=== PATIENT | male | born 1980 | race Hispanic/Latino ===

== ENCOUNTER 2019-03-03 19:50 | Emergency (ER) | payer SELFPAY ==
[2019-03-03 20:07] VITALS: BP 122/65; TEMP 98.2; O2SAT 97
[2019-03-03] MEDS ORDERED: CLINDAMYCIN PHOSPHATE 150 MG/ML VIAL IM ONE (20:17)
[2019-03-03] MEDS ORDERED: KETOROLAC TROMETHAMINE INJ 30 MG/ML VIAL IM ONE (20:17)
--- NOTE | 2019-03-03 20:21 | ED.PDOC ---
History of Present Illness - General Chief Complaint: Skin/Abrasion/Tear Stated Complaint: "knots in back of head" Time Seen by Provider: 03/03/19 20:17 - History of Present Illness Initial Comments: c/o swelling and pain on the back of the neck since 2 weeks gradually getting worse , no fever or chills Severity: moderate Improving Factors: nothing Worsening Factors: nothing Associated Symptoms: rash Allergies/Adverse Reactions: Allergies NO KNOWN ALLERGY Allergy (Verified 03/03/19 20:07) Home Medications: Ambulatory Orders Naproxen [Naprosyn] 500 mg PO BID #10 tab 03/03/19 Sulfamethoxazole-Trimethoprim [Bactrim Ds 800-160 mg] 1 tab PO BIDAC #20 tab 03/03/19 Review of Systems - Review of Systems Constitutional: States: no symptoms reported EENTM: States: no symptoms reported Respiratory: States: no symptoms reported Cardiology: States: no symptoms reported Gastrointestinal/Abdominal: States: no symptoms reported Genitourinary: States: no symptoms reported Musculoskeletal: States: no symptoms reported Skin: States: see HPI Neurological: States: no symptoms reported Endocrine: States: no symptoms reported Hematologic/Lymphatic: States: no symptoms reported Past Medical History (General) - Patient Medical History Hx Seizures: No Hx Stroke: No Hx Dementia: No Hx Asthma: No Hx of COPD: No Hx Cardiac Disorders: No Hx Congestive Heart Failure: No Hx Pacemaker: No Hx Hypertension: No Hx Thyroid Disease: No Hx Diabetes: No Hx Gastroesophageal Reflux: No Hx Renal Disease: No Hx Cancer: No Hx of HIV: No Hx Hepatitis C: No Hx MRSA: No Surgical History: appendectomy - Vaccination History Hx Tetanus, Diphtheria Vaccination: No Hx Influenza Vaccination: Yes - Social History Hx Alcohol Use: No Hx Substance Use: No Hx Physical Abuse: No Hx Emotional Abuse: No - Female History Patient : No Family Medical History - Family History Father Family History: Unknown Living Status: Unknown Physical Exam - Physical Exam General Appearance: Alert, Comfortable Eye Exam: bilateral normal Ears, Nose, Throat: hearing grossly normal Neck: supple, other - tenderness over the back of the neck with small swelling and rash Respiratory: no respiratory distress, no accessory muscle use Cardiovascular/Chest: regular rate, rhythm Extremity: normal range of motion, non-tender, normal inspection Neurologic: no motor/sensory deficits, alert, normal mood/affect, oriented x 3 Lymphatic: no adenopathy Departure - Departure Clinical Impression: Cellulitis and abscess of head Time of Disposition: 20:22 Disposition: Discharge to Home or Self Care Condition: Good Departure Forms: ED Discharge - Pt. Copy, Patient Portal Self Enrollment Diet: resume usual diet Activity: increase activity as tolerated, walking as tolerated Prescriptions: Naproxen [Naprosyn] 500 mg PO BID #10 tab Sulfamethoxazole-Trimethoprim [Bactrim Ds 800-160 mg] 1 tab PO BIDAC #20 tab Home Medications: Ambulatory Orders Naproxen [Naprosyn] 500 mg PO BID #10 tab 03/03/19 Sulfamethoxazole-Trimethoprim [Bactrim Ds 800-160 mg] 1 tab PO BIDAC #20 tab 03/03/19
== END 2019-03-03 20:37 | disposition home or self-care (01) ==
LOC: ER 19:50
DX: L03.811 Cellulitis of head [any part, except face] (principal)
CPT/HCPCS: J1885; J3490

== ENCOUNTER 2019-03-28 12:45 | Emergency (ER) | payer SELFPAY ==
[2019-03-28 13:14] VITALS: BP 120/72; TEMP 98.3; O2SAT 95
--- NOTE | 2019-03-28 13:29 | RAD ---
EXAM DESCRIPTION: Abdomen 1 View CLINICAL HISTORY: 38 years Male, thinsk he may have swallowed a screw COMPARISON: None. TECHNIQUE: 1 view of the abdomen was performed. FINDINGS: Multiple air distended bowel loops are identified with no evidence of bowel obstruction. Moderate amount of fecal material is identified. No abnormal calcifications are noted. 5 mm hypodense focus is noted overlying the right iliac bone in the region of the ascending colon. This could represent a foreign body. IMPRESSION: 5 mm hypodense focus is noted overlying the right iliac bone in the region of the ascending colon. This could represent a foreign body. Electronically signed by: Kadi Jha MD 03/28/2019 1:28 PM [employer] [facility]
--- NOTE | 2019-03-28 13:30 | RAD ---
EXAM DESCRIPTION: Chest,1 View CLINICAL HISTORY: 38 years Male, thinsk he may have swallowed a screw COMPARISON: None available. TECHNIQUE: AP radiograph of the chest was obtained. FINDINGS: Trachea is midline.The cardiomediastinal silhouette is normal in size. The pulmonary vasculature is within normal limits.The lungs are clear with no acute consolidation.No evidence of pleural effusions. IMPRESSION: No acute cardiopulmonary process. Electronically signed by: Kadi Jha MD 03/28/2019 1:28 PM [facility]
--- NOTE | 2019-03-28 13:37 | ED.PDOC ---
History of Present Illness - General Chief Complaint: GI Problem Stated Complaint: possibly swallowed a screw Time Seen by Provider: 03/28/19 12:47 Source: patient Exam Limitations: no limitations - History of Present Illness Initial Comments: the patient is a 38-year-old male presented to emergency room due to concern for having swallowed a small screw. He had what he thought was 4 of them in his mouth when he spit them out there was only 3. No pain with any swallowing. No abdominal pain. No shortness of breath. he is concerned that he may have swallowed 1. Timing/Duration: momentarily Severity: mild Improving Factors: nothing Worsening Factors: nothing Associated Symptoms: denies symptoms Allergies/Adverse Reactions: Allergies NO KNOWN ALLERGY Allergy (Verified 03/03/19 20:07) Home Medications: Ambulatory Orders Acetaminophen [Acetaminophen Extra Stren] 1,000 mg PO DAILY 03/28/19 Review of Systems - Review of Systems Constitutional: States: no symptoms reported EENTM: States: no symptoms reported Respiratory: States: no symptoms reported Cardiology: States: no symptoms reported Gastrointestinal/Abdominal: States: no symptoms reported Genitourinary: States: no symptoms reported Musculoskeletal: States: no symptoms reported Skin: States: no symptoms reported Neurological: States: no symptoms reported Endocrine: States: no symptoms reported All other Systems: No Change from Baseline Past Medical History (General) - Patient Medical History Hx Seizures: No Hx Stroke: No Hx Dementia: No Hx Asthma: No Hx of COPD: No Hx Cardiac Disorders: No Hx Congestive Heart Failure: No Hx Pacemaker: No Hx Hypertension: No Hx Thyroid Disease: No Hx Diabetes: No Hx Gastroesophageal Reflux: No Hx Renal Disease: No Hx Cancer: No Hx of HIV: No Hx Hepatitis C: No Hx MRSA: No Surgical History: appendectomy - Vaccination History Hx Tetanus, Diphtheria Vaccination: No Hx Influenza Vaccination: Yes - Social History Hx Tobacco Use: Yes Hx Alcohol Use: No Hx Substance Use: No Hx Physical Abuse: No Hx Emotional Abuse: No - Female History Patient : No Family Medical History - Family History Father Family History: Unknown Living Status: Unknown Physical Exam - Physical Exam General Appearance: Alert, Comfortable, No apparent distress Eye Exam: bilateral normal Ears, Nose, Throat: hearing grossly normal, normal pharynx Neck: full range of motion, supple Respiratory: lungs clear, normal breath sounds, no respiratory distress, no accessory muscle use Cardiovascular/Chest: normal peripheral pulses, no edema, other - regular rate Peripheral Pulses: radial,right: 2+, radial,left: 2+ Gastrointestinal/Abdominal: non tender, soft Rectal Exam: deferred Extremity: normal range of motion, no pedal edema, normal capillary refill 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 X-ray of the chest and abdomen show no evidence of any object consistent with that. The patient is asymptomatic. He will be discharged home. ER warnings were given for any acute worsening. abby jackson [id number] Departure - Departure Clinical Impression: Ingestion of foreign body Qualifiers: Encounter type: initial encounter Qualified Code(s): T18.9XXA - Foreign body of alimentary tract, part unspecified, initial encounter ICD-10 Supporting Text: Concern for accidental ingestion of foreign body Disposition: Discharge to Home or Self Care Condition: Fair Departure Forms: ED Discharge - Pt. Copy, Patient Portal Self Enrollment Diet: regular diet Activity: increase activity as tolerated Home Medications: Ambulatory Orders Acetaminophen [Acetaminophen Extra Stren] 1,000 mg PO DAILY 03/28/19 Additional Instructions: the patient is a 38-year-old male presenting to the emergency room secondary to concern that he may have swallowed a screw on accident. X-ray of the chest and abdomen show no evidence of any object consistent with that. The patient is asymptomatic. He will be discharged home. ER warnings were given for any acute worsening.
== END 2019-03-28 13:45 | disposition home or self-care (01) ==
LOC: ER 12:45
DX: T18.9XXA Foreign body of alimentary tract, part unspecified, initial encounter (principal); X58.XXXA Exposure to other specified factors, initial encounter; Y92.9 Unspecified place or not applicable